=== PATIENT | female | born 1995 | race Caucasian/White ===

== ENCOUNTER 2016-09-22 08:52 | Day surgery (SDC) | payer MEDICAID ==
[2016-09-22 09:12] VITALS: BMI 40.1
[2016-09-22 09:25] VITALS: TEMP 98
[2016-09-22] MEDS ORDERED: Lactated Ringer's 500 ML IV ONE ×2 (10:49)
[2016-09-22] MEDS ORDERED: Propofol 10 mg/ml Inj (20 ML) ONE (11:02)
[2016-09-22 12:27] VITALS: O2SAT 98
[2016-09-22 12:29] VITALS: BP 104/55; PULSE 61; RESP 15
== END 2016-09-22 12:10 | disposition home or self-care (01) ==
LOC: C.ENDO 08:52
PROVIDERS: ATTEND Internal Medicine Gastroenterology
DX: K29.70 Gastritis, unspecified, without bleeding (principal); E66.01 Morbid (severe) obesity due to excess calories; Z68.41 Body mass index [BMI] 40.0-44.9, adult
CPT/HCPCS: 43239; 84703; 88305; J2001; J2704; J3010; J7120